=== PATIENT | male | born 1990 ===

== ENCOUNTER 2019-12-21 21:11 | Emergency (ER) | payer MEDICAID | END 2019-12-21 21:41 | disposition left against medical advice (07) | LOC: ED 21:11 → EDBD 21:11 → ED 21:41 | DX: Z53.21 Procedure and treatment not carried out due to patient leaving prior to being seen by health care provider (principal) ==

== ENCOUNTER 2019-12-21 23:12 | Emergency (ER) | payer MEDICAID ==
[~2019-12-21] VITALS: Ht 241.3 cm; Wt 86.2 kg
[2019-12-21 23:30] VITALS: Ht 241.3 cm; Wt 86.2 kg
[2019-12-21 23:50] VITALS: BP 138/90
== END 2019-12-21 23:50 | disposition left against medical advice (07) ==
LOC: ED 23:12
DX: Z53.21 Procedure and treatment not carried out due to patient leaving prior to being seen by health care provider (principal)